=== PATIENT | female | born 1960 | race African-American/Black ===

== ENCOUNTER → 2021-05-05 | Outpatient (REF) | LOC: M EMP 10:58 | PROVIDERS: ATTEND Family Medicine | DX: Z20.822 Contact with and (suspected) exposure to COVID-19 (principal) ==

== ENCOUNTER → 2022-03-15 | Outpatient (REF) | LOC: M EMP 15:08 | PROVIDERS: ATTEND Family Medicine | DX: Z20.822 Contact with and (suspected) exposure to COVID-19 (principal) ==

== ENCOUNTER 2025-01-13 17:40 | Emergency (ER) | payer BC ==
[~2025-01-13] VITALS: Ht 172.7 cm; Wt 63.1 kg
[2025-01-13 17:51] VITALS: BP 132/82; TEMP 98.5; O2SAT 100
[2025-01-13] MEDS ORDERED: UNRESOLVED CLARIFICATION ENTRY XX STA (18:14)
== END 2025-01-14 02:20 | disposition left against medical advice (07) ==
LOC: M ED 17:40
DX: Z53.21 Procedure and treatment not carried out due to patient leaving prior to being seen by health care provider (principal)

== ENCOUNTER 2025-01-14 08:43 | Emergency (ER) | payer BC ==
[~2025-01-14] VITALS: Ht 172.7 cm; Wt 62.3 kg
[2025-01-14 10:36] VITALS: BP 126/74; TEMP 98.4; O2SAT 98
== END 2025-01-14 10:35 | disposition home or self-care (01) ==
LOC: M ED 08:43
DX: S09.90XA Unspecified injury of head, initial encounter (principal); V49.50XA Passenger injured in collision with unspecified motor vehicles in traffic accident, initial encounter; Y92.410 Unspecified street and highway as the place of occurrence of the external cause; Y93.89 Activity, other specified; Y99.9 Unspecified external cause status